=== PATIENT | male | born 1950 ===

== ENCOUNTER 2021-06-16 01:21 | Day surgery (SDC) | payer MEDICARE, OTHER, SELFPAY ==
[2021-05-30 14:48] VITALS: BMI 26.9
--- NOTE | 2021-06-13 18:35 | P.PNAN_ITS ---
Anes - Initial Pre Proc Eval Procedure: Operation Date: 06/16/21 09:00 Proposed Procedures p Screening Colonoscopy - Gm Bustillos MD Date/Time: 06/13/21 18:35 Surgeon: Gm Bustillos MD Pre Op Diagnosis: neoplasm screening Patient Data Age: 70 Gender: M Height: 1.75 m Weight: 82.7 kg Allergies Allergy/AdvReac Type Severity Reaction Status Date / Time No Known Allergies Allergy Verified 05/30/21 14:47 Home Medications Medication Instructions Recorded Confirmed Type No Home Medications 05/30/21 05/30/21 History Patient hx anesthesia problems: none Family hx anesthesia problems: none Results Review: All pre-operative results and documents have been reviewed as part of the pre-operative evaluation. [facility] Past Medical History Medical History (Updated 06/16/21 @ 08:39 by Gm Bustillos MD) Glaucoma History of colon cancer chemo/radiation Social History Social History Smoking status: Never smoker Alcohol intake: current Living arrangements: with family Spiritual care concerns: No Anes - Eval Final PreProcedure Day of Procedure 06/13/21 18:35 Patient weight: overweight Heart: regular rate and rhythm Lungs: clear to auscultation and normal air movement Airway: Mallampati scale class II Neurological: alert and oriented Last oral intake: >/= 8 hours ASA classification: II Emergent: no Anesthetic plan: proceed Anesthesia type and monitoring: general GIVS and standard monitoring Results Review: All pre-operative results and documents have been reviewed as part of the pre-operative evaluation. Informed Consent: The patient's anesthetic plan and its attendant risks and benefits were discussed with the patient/family/POA. Questions were solicited and answers provided to the satisfaction of the patient/family/POA.
[2021-06-16 08:11] VITALS: BP 145/74; PULSE 61; RESP 16; TEMP 36.6; O2SAT 96; BMI 26.4
[2021-06-16] MEDS: LACTATED RINGERS 1,000 ML 150 ML IV CONT ×2 (08:19→09:34)
--- NOTE | 2021-06-16 08:37 | P.CONGI_ITS ---
Assessment and Plan Assessment and plan (1) History of colon cancer: Code(s): Z85.038 - Personal history of other malignant neoplasm of large intestine Status: Acute Assessment and Plan: Patient has a history of a colon cancer resected 2007. He presents today for surveillance examination. Further recommendations will be given after endoscopy. GI Consult Note Consult date/time: 06/16/21 08:37 HPI: Hardeep Schwartz is a 70 year old male Presents for screening colonoscopy. Patient reports that he was identified as having colon cancer in 2007 while in [place]. Patient underwent sigmoid colectomy radiation and chemotherapy. He apparently has done well subsequently. His most recent colonoscopy was 5 years ago. It is uncertain whether any additional polyps were removed. He reports that his current weight appetite bowel movements are normal. There have been no family members with polyps nor cancer identified. He presents today for screening exam. He is established with a new doctor in the local area. Review of Systems Review of Systems: All systems reviewed & are unremarkable except as noted in HPI and below PMFSH Past Medical History Medical History (Updated 06/16/21 @ 08:39 by Gm Bustillos MD) Glaucoma History of colon cancer chemo/radiation Social History Social History Smoking status: Never smoker Alcohol intake: current Living arrangements: with family Spiritual care concerns: No Meds Home Medications and Allergies Home Medications Medication Instructions Recorded Confirmed Type No Home Medications 05/30/21 05/30/21 History Allergies Allergy/AdvReac Type Severity Reaction Status Date / Time No Known Allergies Allergy Verified 05/30/21 14:47 Vital Signs Vital Signs - 24 hr 06/16/21 08:11 Temperature 97.8 F Pulse Rate 61 Respiratory Rate 16 Blood Pressure 145/74 H Pulse Oximetry 96 Exam Narrative: Physical exam reveals patient to be alert. Vital signs stable. HEENT exam is unremarkable. Patient is anicteric. Lungs are clear to auscultation and percussion. Heart is without murmur or extra sounds. Abdominal exam bowel sounds are present soft nontender with no organomegaly. Digital external rectal exam is normal.
[2021-06-16 09:27] VITALS: BP 99/62; PULSE 54; RESP 18; O2SAT 100
[2021-06-16 09:37] VITALS: BP 120/69; PULSE 56; RESP 20; O2SAT 100
[2021-06-16 09:47] VITALS: BP 136/80; PULSE 54; RESP 18; O2SAT 100
== END 2021-06-16 09:50 | disposition home or self-care (01) ==
PROVIDERS: PCP Internal Medicine; Visit Provider Internal Medicine Gastroenterology
PROC: 0DJD8ZZ Inspection of Lower Intestinal Tract, Via Natural or Artificial Opening Endoscopic (ICD-10-PCS; CPT 45378; principal; 2021-06-16 09:00)
DX: Z12.11 Encounter for screening for malignant neoplasm of colon (principal); Z85.038 Personal history of other malignant neoplasm of large intestine; Z98.0 Intestinal bypass and anastomosis status; K64.8 Other hemorrhoids; Z90.49 Acquired absence of other specified parts of digestive tract; Z92.21 Personal history of antineoplastic chemotherapy; Z92.3 Personal history of irradiation
CPT/HCPCS: G0105; J2704; J7120

== ENCOUNTER 2024-09-01 11:13 | Outpatient (CLI) | payer MEDICARE, OTHER, SELFPAY ==
[2024-09-01 13:08] LABS: Influenza A QL RT-PCR Negative (Negative); Influenza B QL RT-PCR Negative (Negative); SARS-CoV-2 RNA PCR Positive (Negative)
== END 2024-09-01 11:14 | disposition home or self-care (01) ==
PROVIDERS: PCP Internal Medicine; Visit Provider Emergency Medicine
DX: U07.1 COVID-19 (principal)
CPT/HCPCS: 87636